=== PATIENT | male | born 1955 | race Caucasian/White ===

== ENCOUNTER 2019-12-31 13:52 | Emergency (ER) | payer MEDICAID ==
[~2019-12-31 13:52] MED LIST: AMLO10TA8 PO; AMOX1TAB64 PO; ASPI-496 PO; ATEN100T PO; HYDR25TA6 PO; LISI40TA PO
== END 2019-12-31 14:12 ==
LOC: ED 14:08
DX: Z53.21 Procedure and treatment not carried out due to patient leaving prior to being seen by health care provider (principal)

== ENCOUNTER 2020-01-02 11:07 | Emergency (ER) | payer OTHER ==
[~2020-01-02] VITALS: Ht 162.6 cm; Wt 70.8 kg
[2020-01-02 12:26] VITALS: BP 126/61
--- NOTE | 2020-01-02 12:39 | NUR ---
pt presents to ED with c/o sore throat and headache onset last night, but resolved today. pt states a close contact tested positive for covid. pt maintains spo2 >95% on room air, pt is a&o, resps even and unlabored. nadn. pt has no other complaint, states he just wanted a covid test. cxr resulted, chart up for recheck. awaiting MD and dispo.
--- NOTE | 2020-01-02 13:18 | NUR ---
PT GIVEN DC INSTRUCTIONS AND SCRIPT , EDUCATED REGARDING RX FOR TESSALON PERLES. PT IS A&O, RESPS EVEN AND UNLABORED, AMBULATORY TO DC DESK WITH STEADY GAIT. PT EDUCATED ON SELF ISOLATION WHILE COVID TEST PENDING. ALL QUESTIONS ANSWERED.
== END 2020-01-02 13:19 | disposition home or self-care (01) ==
LOC: ED 12:16
DX: U07.1 COVID-19 (principal); B34.9 Viral infection, unspecified; R06.02 Shortness of breath; R51.9 Headache, unspecified; R05 Cough; I10 Essential (primary) hypertension; Z87.891 Personal history of nicotine dependence
CPT/HCPCS: 36415; 71045; 87635; 99284

== ENCOUNTER 2020-01-08 11:29 | Inpatient (IN) | payer OTHER ==
[~2020-01-08] VITALS: Ht 160 cm; Wt 72.5 kg
[~2020-01-08 11:29] MED LIST changes: +AMLO-211 PO; -AMLO10TA8 PO
[2020-01-08] MEDS ORDERED: KETOROLAC 30 MG/1 ML ONE (14:08)
--- NOTE | 2020-01-08 14:25 | NUR ---
PT CAME IN CO OF BODY ACHES, CHILLS, FATIGUE, AND LBP. PT DENIES URINARY SYMPTOMS. UA SENT. X RAY REVEALED PNEUMONIA. PT RESTING INGURNEY. MEDICATED PER MAY. EKG COMPLETE
[2020-01-08] MEDS ORDERED: KETOROLAC 30 MG/1 ML IM ONE (14:30)
[2020-01-08 14:31] LABS: MICROSCOPIC INDICATED
--- NOTE | 2020-01-08 14:36 | NUR ---
PT HAD POSITIVE COVID TEST RESULT ON THURSDAY 01/04
[2020-01-08] MEDS: DOXYCYCLINE 100 MG in DEXTROSE 5% 250 ML IV SCH (15:13)
--- NOTE | 2020-01-08 15:15 | NUR ---
IV ABX INFUSING AT THIS TIME. BLOOD CULTURES PRIOR TO ADM OF ABX
[2020-01-08 15:18] LABS: ALANINE AMINOTRANSFERASE 24 U/L (12-78); ALBUMIN 3.9 g/dL (3.4-5.0); ANION GAP 12 mmol/L (5-15); CALCIUM 8.6 mg/dL (8.5-10.1); CHLORIDE 89 mmol/L (98-107); CREATININE 0.93 mg/dL (0.7-1.3)
[2020-01-08 15:22] LABS: BASOPHILS % (AUTO) 0 % (0-1); EOSINOPHILS % (AUTO) 0 % (1-7); LYMPHOCYTES % (AUTO) 20 % (22-44); MEAN CORPUSCULAR HEMOGLOBIN 30.3 pg (27.5-34.5); MEAN CORPUSCULAR HGB CONC 34.6 g/dL (33.2-36.2); MEAN PLATELET VOLUME 9.2 fL (7.4-10.4); MONOCYTES % (AUTO) 7 % (2-9); NEUTROPHILS % (AUTO) 72 % (42-75); PLATELET COUNT 147 x10^3/uL (130-400); RED BLOOD COUNT 4.61 x10^6/uL (4.38-5.82); RED CELL DISTRIBUTION WIDTH 13.1 % (9.4-14.8)
[2020-01-08 15:23] LABS: MD NO
[2020-01-08 15:24] LABS: ALKALINE PHOSPHATASE 100 U/L (45-117); BILIRUBIN,TOTAL 0.7 mg/dL (0.2-1.0); TOTAL PROTEIN 7.7 g/dL (6.4-8.2)
[2020-01-08 15:46] LABS: D-DIMER (DIC) 0.46 ug/mlFEU (0.00-0.52); PROTIME 11.2 Seconds (9.6-11.5)
[2020-01-08] MEDS ORDERED: POTASSIUM CHLORIDE 20 MEQ TAB.ER.PRT ONE (15:52)
[2020-01-08] MEDS ORDERED: HYDROcodone/APAP 5/325 TABLET ONE (15:52)
[2020-01-08] MEDS ORDERED: HYDROcodone/APAP 5/325 TABLET PO ONE (16:00)
[2020-01-08] MEDS ORDERED: POTASSIUM CHLORIDE 20 MEQ TAB.ER.PRT PO ONE (16:00)
[2020-01-08] MEDS ORDERED: NS + 20MEQ KCL 1,000 ML IV ONE (16:26)
[2020-01-08] MEDS ORDERED: DEXAMETHASONE 4 MG/ML, 1ML ONE (16:26)
[2020-01-08] MEDS ORDERED: BISACODYL 10 MG SUPP PR PRN (16:30)
[2020-01-08] MEDS ORDERED: METOCLOPRAMIDE 5 MG/ML, 2ML IVPush PRN (16:30)
[2020-01-08 16:47] LABS: ANION GAP 11 mmol/L (5-15); CALCIUM 8.7 mg/dL (8.5-10.1); CHLORIDE 90 mmol/L (98-107); CREATININE 0.97 mg/dL (0.7-1.3)
[2020-01-08] MEDS ORDERED: ASCORBIC ACID 500 MG TABLET ONE (16:48)
[2020-01-08] MEDS ORDERED: ENOXAPARIN 40 MG/0.4 ML ONE (16:48)
[2020-01-08 16:51] LABS: TROPONIN I < 0.015 ng/mL (0.000-0.045)
[2020-01-08] MEDS: ASCORBIC ACID 500 MG TABLET PO SCH (16:52)
[2020-01-08] MEDS: ENOXAPARIN 40 MG/0.4 ML SQ SCH (16:52)
[2020-01-08] MEDS: NS + 20MEQ KCL 1,000 ML IV SCH (16:52)
[2020-01-08] MEDS: DEXAMETHASONE 4 MG/ML, 1ML IVPush SCH (16:52)
--- NOTE | 2020-01-08 17:00 | NUR ---
PT MEDICATED PER MAR
[2020-01-08] MEDS: POTASSIUM CHLORIDE 40 MEQ in SODIUM CHLORIDE 0.45% 1,000 ML IV SCH (17:24)
[2020-01-08] MEDS ORDERED: ACETAMINOPHEN 325 MG TABLET ONE (17:33)
--- NOTE | 2020-01-08 18:23 | NUR ---
TASK RN NOTE: PT PLACED ON HOSPITAL BED BY PRIMARY RN.
--- NOTE | 2020-01-08 18:23 | NUR ---
TASK RN NOTE: PT SITTING UP IN BED, NAD NOTED AT THIS TIME.
[2020-01-08] MEDS: GABAPENTIN 100 MG CAPSULE PO SCH ×2 (19:27→20:27)
[2020-01-08] MEDS: ACETAMINOPHEN 325 MG TABLET PO PRN (19:27)
[2020-01-08] MEDS: BACLOFEN 10 MG TABLET PO PRN (19:28)
--- NOTE | 2020-01-08 19:34 | NUR ---
PT PROVIDED WITH GÓMEZ LOPEZ
[2020-01-08] MEDS ORDERED: MELATONIN 5 MG TABLET ONE (20:30)
[2020-01-08] MEDS ORDERED: CEFDINIR 300 MG CAPSULE ONE (20:30)
[2020-01-08] MEDS ORDERED: DOXYCYCLINE 100MG TABLET ONE (20:30)
[2020-01-08] MEDS: MELATONIN 5 MG TABLET PO SCH (20:34)
[2020-01-08] MEDS: DOXYCYCLINE 100MG TABLET PO SCH (20:34)
[2020-01-08] MEDS: CEFDINIR 300 MG CAPSULE PO SCH (20:34)
--- NOTE | 2020-01-08 20:38 | NUR ---
PT RESTING IN [facility]. LIGHTS OFF. MEDICATED PER MAY. VSS. NAD
[2020-01-08 22:03] VITALS: BP 128/68
[2020-01-08] MEDS: TRAZODONE 50MG TABLET PO PRN (22:32)
[2020-01-09 01:45] VITALS: BP 111/64
[2020-01-09] MEDS: POTASSIUM CHLORIDE 40 MEQ in SODIUM CHLORIDE 0.45% 1,000 ML IV SCH ×2 (01:56→10:30)
[2020-01-09 02:02] LABS: ANION GAP 10 mmol/L (5-15); CALCIUM 7.9 mg/dL (8.5-10.1); CHLORIDE 95 mmol/L (98-107); CREATININE 0.75 mg/dL (0.7-1.3)
[2020-01-09] MEDS: DOXYCYCLINE 100 MG in DEXTROSE 5% 250 ML IV SCH ×2 (02:56→15:37)
[2020-01-09] MEDS: DEXAMETHASONE 4 MG/ML, 1ML IVPush SCH ×2 (05:18→15:37)
[2020-01-09 05:58] LABS: ANION GAP 7 mmol/L (5-15); CALCIUM 8.3 mg/dL (8.5-10.1); CHLORIDE 94 mmol/L (98-107)
[2020-01-09 06:00] LABS: CREATININE 0.85 mg/dL (0.7-1.3)
[2020-01-09 06:48] VITALS: BP 127/74
[2020-01-09] MEDS: AMLODIPINE 10 MG TAB PO SCH (07:36)
[2020-01-09] MEDS: CEFDINIR 300 MG CAPSULE PO SCH ×2 (07:36→20:31)
[2020-01-09] MEDS: ATENOLOL 100 MG TABLET PO SCH (07:36)
[2020-01-09] MEDS: DOXYCYCLINE 100MG TABLET PO SCH ×2 (07:36→20:31)
[2020-01-09] MEDS: GABAPENTIN 100 MG CAPSULE PO SCH ×3 (07:36→20:31)
[2020-01-09] MEDS: BACLOFEN 10 MG TABLET PO PRN ×2 (07:36→15:37)
[2020-01-09] MEDS: LISINOPRIL 40 MG TABLET PO SCH (07:36)
[2020-01-09] MEDS: ZINC SULFATE 220 MG CAPSULE PO SCH (07:36)
[2020-01-09] MEDS: ASPIRIN 81 MG TABLET EC PO SCH (07:36)
[2020-01-09] MEDS: ASCORBIC ACID 500 MG TABLET PO SCH ×2 (07:36→15:37)
[2020-01-09] MEDS: ACETAMINOPHEN 325 MG TABLET PO PRN (10:47)
[2020-01-09] MEDS: NS + 20MEQ KCL 1,000 ML IV SCH (10:48)
[2020-01-09 12:31] LABS: ANION GAP 8 mmol/L (5-15); CHLORIDE 98 mmol/L (98-107); CREATININE 0.73 mg/dL (0.7-1.3)
[2020-01-09 12:32] LABS: CALCIUM 8.5 mg/dL (8.5-10.1)
[2020-01-09] MEDS: ENOXAPARIN 40 MG/0.4 ML SQ SCH (15:38)
[2020-01-09] MEDS ORDERED: POTASSIUM PHOSPHATE 44 MEQ in SODIUM CHLORIDE 0.9% 500 ML IV ONE (16:30)
[2020-01-09 18:51] LABS: ANION GAP 6 mmol/L (5-15); CALCIUM 8.2 mg/dL (8.5-10.1); CHLORIDE 103 mmol/L (98-107); CREATININE 0.72 mg/dL (0.7-1.3)
[2020-01-09 20:25] VITALS: BP 114/67
[2020-01-09] MEDS: MELATONIN 5 MG TABLET PO SCH (20:31)
[2020-01-10 00:43] LABS: ANION GAP 5 mmol/L (5-15); CALCIUM 8.1 mg/dL (8.5-10.1); CHLORIDE 103 mmol/L (98-107); CREATININE 0.67 mg/dL (0.7-1.3)
[2020-01-10 02:09] VITALS: BP 120/68
[2020-01-10] MEDS: DEXAMETHASONE 4 MG/ML, 1ML IVPush SCH ×2 (05:22→16:48)
[2020-01-10 06:36] LABS: ANION GAP 6 mmol/L (5-15); CALCIUM 8.4 mg/dL (8.5-10.1); CHLORIDE 104 mmol/L (98-107); CREATININE 0.75 mg/dL (0.7-1.3)
[2020-01-10 09:45] VITALS: BP 150/93
[2020-01-10] MEDS: CEFDINIR 300 MG CAPSULE PO SCH ×2 (10:06→20:20)
[2020-01-10] MEDS: ASPIRIN 81 MG TABLET EC PO SCH (10:06)
[2020-01-10] MEDS: ASCORBIC ACID 500 MG TABLET PO SCH ×2 (10:06→16:48)
[2020-01-10] MEDS: AMLODIPINE 10 MG TAB PO SCH (10:06)
[2020-01-10] MEDS: LISINOPRIL 40 MG TABLET PO SCH (10:06)
[2020-01-10] MEDS: ZINC SULFATE 220 MG CAPSULE PO SCH (10:06)
[2020-01-10] MEDS: GABAPENTIN 100 MG CAPSULE PO SCH ×3 (10:06→20:20)
[2020-01-10] MEDS: DOXYCYCLINE 100MG TABLET PO SCH ×2 (10:06→20:20)
[2020-01-10] MEDS: ATENOLOL 100 MG TABLET PO SCH (10:07)
[2020-01-10] MEDS: NS + 20MEQ KCL 1,000 ML IV SCH (10:26)
[2020-01-10 12:41] VITALS: BP 138/65
[2020-01-10] MEDS: BACLOFEN 10 MG TABLET PO PRN (16:48)
[2020-01-10] MEDS: ENOXAPARIN 40 MG/0.4 ML SQ SCH (16:48)
[2020-01-10 18:55] VITALS: BP 143/69
[2020-01-10] MEDS: MELATONIN 5 MG TABLET PO SCH (20:20)
[2020-01-10] MEDS: TRAZODONE 50MG TABLET PO PRN ×2 (20:20→23:00)
[2020-01-10] MEDS: ACETAMINOPHEN 325 MG TABLET PO PRN (23:00)
[2020-01-11 02:30] VITALS: BP 132/70
[2020-01-11] MEDS: DEXAMETHASONE 4 MG/ML, 1ML IVPush SCH (05:27)
[2020-01-11 05:46] LABS: ANION GAP 6 mmol/L (5-15); CALCIUM 8.1 mg/dL (8.5-10.1); CHLORIDE 109 mmol/L (98-107)
[2020-01-11 05:49] LABS: C-REACTIVE PROTEIN, QUANT 0.62 mg/dL (0.02-0.49); CREATININE 0.62 mg/dL (0.7-1.3)
[2020-01-11 07:10] VITALS: BP 150/76
[2020-01-11] MEDS: NS + 20MEQ KCL 1,000 ML IV SCH (09:32)
[2020-01-11] MEDS: GABAPENTIN 100 MG CAPSULE PO SCH (09:32)
[2020-01-11] MEDS: ASCORBIC ACID 500 MG TABLET PO SCH (09:32)
[2020-01-11] MEDS: ASPIRIN 81 MG TABLET EC PO SCH (09:33)
[2020-01-11] MEDS: BACLOFEN 10 MG TABLET PO PRN (09:33)
[2020-01-11] MEDS: AMLODIPINE 10 MG TAB PO SCH (09:33)
[2020-01-11] MEDS: ZINC SULFATE 220 MG CAPSULE PO SCH (09:33)
[2020-01-11] MEDS: ATENOLOL 100 MG TABLET PO SCH (09:33)
[2020-01-11] MEDS: CEFDINIR 300 MG CAPSULE PO SCH (09:33)
[2020-01-11] MEDS: LISINOPRIL 40 MG TABLET PO SCH (09:33)
[2020-01-11] MEDS: DOXYCYCLINE 100MG TABLET PO SCH (09:33)
[2020-01-11] MEDS ORDERED: PRED20TA PO (11:35)
[2020-01-11 11:51] VITALS: BP 132/73
== END 2020-01-11 15:09 | disposition home or self-care (01) | DRG 177 ==
LOC: ED 16:16 → EDIP 17:53 → 4EST 21:54
PROVIDERS: ADMIT Internal Medicine; ATTEND Hospitalist
DX: U07.1 COVID-19 (principal); J12.89 Other viral pneumonia; E87.1 Hypo-osmolality and hyponatremia; E87.6 Hypokalemia; I10 Essential (primary) hypertension; M19.90 Unspecified osteoarthritis, unspecified site; M54.5 Low back pain
CPT/HCPCS: 36415; 71045; 72110; 80048; 80053; 81001; 82728; 83605; 83615; 83735; 84100; 84145; 84484; 85025; 85049; 85379; 85384; 85610; 85730; 86140; 87040; 93005; G0378; J1100; J1650; J1885; J3480; J7060; J7040

== ENCOUNTER 2020-01-13 02:12 | Emergency (ER) | payer OTHER ==
[~2020-01-13] VITALS: Ht 160 cm; Wt 67.4 kg
[~2020-01-13 02:12] MED LIST changes: +PRED20TA PO
[2020-01-13] MEDS ORDERED: KETOROLAC 30 MG/1 ML IM ONE (03:30)
[2020-01-13] MEDS ORDERED: KETOROLAC 30 MG/1 ML ONE ×2 (03:39→03:47)
[2020-01-13 03:44] LABS: BASOPHILS % (AUTO) 0 % (0-1); EOSINOPHILS % (AUTO) 0 % (1-7); LYMPHOCYTES % (AUTO) 25 % (22-44); MEAN CORPUSCULAR HEMOGLOBIN 30.7 pg (27.5-34.5); MEAN CORPUSCULAR HGB CONC 35.3 g/dL (33.2-36.2); MEAN PLATELET VOLUME 7.9 fL (7.4-10.4); MONOCYTES % (AUTO) 13 % (2-9); NEUTROPHILS % (AUTO) 62 % (42-75); PLATELET COUNT 265 x10^3/uL (130-400); RED BLOOD COUNT 4.63 x10^6/uL (4.38-5.82); RED CELL DISTRIBUTION WIDTH 13.3 % (9.4-14.8)
[2020-01-13 03:47] LABS: MD NO
[2020-01-13 03:58] LABS: ALANINE AMINOTRANSFERASE 42 U/L (12-78); ALBUMIN 3.6 g/dL (3.4-5.0); ANION GAP 8 mmol/L (5-15); CALCIUM 8.8 mg/dL (8.5-10.1); CHLORIDE 95 mmol/L (98-107); CREATININE 0.65 mg/dL (0.7-1.3)
[2020-01-13 04:01] LABS: ALKALINE PHOSPHATASE 93 U/L (45-117); BILIRUBIN,TOTAL 0.8 mg/dL (0.2-1.0); TOTAL PROTEIN 7.5 g/dL (6.4-8.2)
[2020-01-13 04:37] LABS: MICROSCOPIC NOT IND
[2020-01-13 05:01] VITALS: BP 160/82
--- NOTE | 2020-01-13 05:53 | NUR ---
TASK RN: DC EDUCATION PROVIDED, PT DEMONSTRATES UNDERSTANDING. PT AMBULATED STEADILY TO DC WITH RN. FRIEND TO TRANSPORT PT HOME.
== END 2020-01-13 05:55 | disposition home or self-care (01) ==
LOC: ED 05:19
DX: M54.5 Low back pain (principal); E87.1 Hypo-osmolality and hyponatremia; I10 Essential (primary) hypertension; Z87.891 Personal history of nicotine dependence
CPT/HCPCS: 36415; 80053; 81003; 83690; 85025; 99283; J1885; 96372

== ENCOUNTER 2020-01-14 00:37 | Emergency (ER) | payer OTHER ==
[~2020-01-14] VITALS: Ht 165.1 cm; Wt 67.5 kg
[2020-01-14] MEDS ORDERED: CYCLOBENZAPRINE 10 MG TABLET ONE (01:18)
[2020-01-14] MEDS ORDERED: KETOROLAC 60 MG/2 ML ONE (01:18)
[2020-01-14] MEDS ORDERED: CYCLOBENZAPRINE 10 MG TABLET PO ONE (01:30)
[2020-01-14] MEDS ORDERED: KETOROLAC 30 MG/1 ML IM ONE (01:30)
[2020-01-14 01:58] VITALS: BP 135/74
== END 2020-01-14 02:14 | disposition home or self-care (01) ==
LOC: ED 01:30
DX: S39.012A Strain of muscle, fascia and tendon of lower back, initial encounter (principal); I10 Essential (primary) hypertension; Z87.891 Personal history of nicotine dependence; X58.XXXA Exposure to other specified factors, initial encounter; Y93.89 Activity, other specified; Y92.89 Other specified places as the place of occurrence of the external cause; Y99.8 Other external cause status
CPT/HCPCS: 96372; 99283; J1885